=== PATIENT | female | born 1935 | race Caucasian/White ===

== ENCOUNTER 2017-02-04 16:59 | Emergency (ER) | payer MEDICARE, BC ==
[~2017-02-04] VITALS: Ht 152.4 cm; Wt 56.7 kg
[2017-02-04 17:50] VITALS: BP 156/82
[2017-02-04] MEDS ORDERED: TYLENOL EXTRA500 MG ORAL (18:27)
[2017-02-04 18:42] VITALS: BP 151/80
[2017-02-04] MEDS ORDERED: Tetanus/Diptheria/Pertussis Vaccine 0.5ml Syr IM ONE (18:45)
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
--- NOTE | 2017-02-05 08:41 | Diagnostic Imaging Report ---
Indication: Neck pain status post fall Technique: Spiral acquisitions obtained through the cervical spine. No IV contrast utilized. Multiplanar reconstructions were generated. Total dose length product 261 mGycm. CTDIvol(s) 11 mGy. Dose reduction achieved using automated exposure control Comparison: None Findings: No acute fractures. No dislocations. There is minimal anterior offset of C7 on T1. Bony alignment is otherwise normal. Vertebral body heights are preserved. There is degenerative narrowing of the anterior lateral axial joint. At C3-4, there is severe degenerative disc narrowing. There is posterior broad-based Central and right paracentral disc protrusion. This results in moderate narrowing of the spinal canal, may impinge upon the right lateral recess. There is severe right neural foraminal narrowing. At C4-5, there is severe degenerative disc space narrowing. There is broad-based posterior disc protrusion which results in mild to moderate narrowing of the spinal canal. There is severe right, moderate to severe left neural foraminal stenosis. At C5-6, there is severe degenerative disc narrowing. There is broad-based posterior disc protrusion and osteophyte formation. This results in moderate narrowing of the spinal canal. There is moderate right, moderate to severe left neural foraminal stenosis. There is mild facet arthrosis on the left. At C6-7, there is severe degenerative disc narrowing. There is severe right and moderate to severe left neural foraminal stenosis. Mild broad-based disc protrusion, in combination with short pedicles, results in mild narrowing of the spinal canal. At the remaining disc levels, no significant disc bulge or protrusion, spinal stenosis, or neural foraminal stenosis. There is marked bilateral facet arthrosis at C7-T1. There is also disc arthrosis in the upper thoracic spine. Subcentimeter nodule is seen in the thyroid bilaterally. Impression: No acute bony trauma Degenerative changes, as detailed above Subcentimeter thyroid nodules. No further followup necessary This agrees with the preliminary interpretation provided overnight by [facility]. The CT scanner at [facility] is accredited by the [employer] and the scans are performed using protocols designed to limit radiation exposure to as low as reasonably achievable to attain images of sufficient resolution adequate for diagnostic evaluation.
--- NOTE | 2017-02-05 08:45 | Diagnostic Imaging Report ---
Indications: Head and neck pain status post fall Technique: Spiral acquisitions obtained through the brain. Angled axial and coronal 5 x 5 mm slices were reconstructed. Total dose length product 1379 mGycm. CTDI vol(s) 70 mGy. Dose reduction achieved using automated exposure control Comparison: None Findings: Ventricles and extra-axial CSF spaces are normal for age. There is periventricular deep white matter low-attenuation bilaterally. There is an old lacunar infarct in the right posterior lentiform and possibly in the left hippocampus. No acute intracranial hemorrhage or edema. No mass effect or midline shift. No significant extracranial soft tissue abnormality. Intact calvarium. Visualized orbits and sinuses are unremarkable. Impression: Deep white matter low-attenuation, consistent with chronic microvascular ischemic changes Old bilateral lacunar infarcts Negative for acute intracranial bleed or mass effect This agrees with the preliminary interpretation provided overnight by [facility]. The CT scanner at [facility] is accredited by the [employer] and the scans are performed using protocols designed to limit radiation exposure to as low as reasonably achievable to attain images of sufficient resolution adequate for diagnostic evaluation.
== END 2017-02-04 18:44 | disposition home or self-care (01) ==
LOC: EMR 18:00
DX: S40.811A Abrasion of right upper arm, initial encounter (principal); S09.8XXA Other specified injuries of head, initial encounter; S40.021A Contusion of right upper arm, initial encounter; W19.XXXA Unspecified fall, initial encounter; Y92.89 Other specified places as the place of occurrence of the external cause; Z23 Encounter for immunization; I10 Essential (primary) hypertension; E04.2 Nontoxic multinodular goiter
CPT/HCPCS: 70450; 72125; 90471; 90715; 99283